=== PATIENT | female | born 1990 | race African-American/Black ===

== ENCOUNTER 2017-09-03 07:18 | Inpatient (IN) | payer MEDICAID ==
[~2017-09-03] VITALS: Ht 162.6 cm; Wt 65.3 kg
[2017-09-03] MEDS ORDERED: LACTATED RINGERS 1,000 ML IV SCH (07:29)
[2017-09-03] MEDS ORDERED: CARBOPROST TROMETHAMINE 250 MCG/ML AMPUL IM PRN (07:30)
[2017-09-03] MEDS ORDERED: LIDOCAINE HCL 1% 20ML VIAL (Pyxis) INJ INFIL SCH (07:30)
[2017-09-03] MEDS ORDERED: METHYLERGONOVINE MALEATE 0.2 MG/ML IM PRN (07:30)
[2017-09-03 08:25] LABS: CLARITY URINE CLEAR (CLEAR); COLOR URINE YELLOW (YELLOW); KETONES URINE 1+ (NEGATIVE); LEUKOCYTE ESTERASE URINE NEGATIVE (NEGATIVE); NITRITE URINE NEGATIVE (NEGATIVE); OCCULT BLOOD URINE NEGATIVE (NEGATIVE); PROTEIN URINE NEGATIVE (NEGATIVE); SPECIFIC GRAVITY URINE 1.011 (1.005-1.030)
[2017-09-03 08:27] LABS: BASOPHILS % 0.1 % (0.0-2.0); EOSINOPHILS % 0.1 % (0.0-5.0); HEMATOCRIT. 32.7 % (36.0-48.0); LYMPHOCYTES % 16.2 % (20.0-50.0); MEAN CORPUSCULAR HEMOGLOBIN 31.5 pg (28.0-32.0); MEAN CORPUSCULAR VOLUME 93.5 fL (81.0-99.0); MEAN PLATELET VOLUME 9.5 fl (7.4-10.4); MONOCYTES % 5.2 % (2.0-8.0); NEUTROPHILS % 78.4 % (40.0-76.0); PLATELET 234 x1000/uL (130-400); RED CELL DISTRIBUTION WIDTH 14.6 % (11.6-14.6)
[2017-09-03 08:29] LABS: CHLORIDE 102 mEq/L (98-107)
[2017-09-03 08:38] LABS: PARTIAL THROMBOPLASTIN TIME 26.4 sec (23.4-31.0)
[2017-09-03 08:57] LABS: PHENCYCLIDINE URINE SCREEN NEGATIVE (NEGATIVE)
[2017-09-03 08:58] LABS: *BARBITURATES SCREEN URINE NEGATIVE (NEGATIVE); *BENZODIAZEPINES SCREEN URINE NEGATIVE (NEGATIVE); *COCAINE SCREEN URINE NEGATIVE (NEGATIVE); METHADONE URINE SCREEN NEGATIVE (NEGATIVE); OPIATES URINE SCREEN NEGATIVE (NEGATIVE)
[2017-09-03 09:15] LABS: *AMPHETAMINES SCREEN URINE PRESUMTIVE POSITIVE (NEGATIVE); CANNABINOID URINE SCREEN PRESUMTIVE POSITIVE (NEGATIVE)
[2017-09-03] MEDS: DEXT 5%/LR + PITOCIN 20UNITS/L 1,000 ML IV SCH ×2 (09:24→09:54)
[2017-09-03] MEDS ORDERED: DEXT 5%/LR + PITOCIN 20UNITS/L 1,000 ML IV SCH (09:51)
[2017-09-03] MEDS ORDERED: IBUPROFEN 400MG TABLET PO PRN (10:00)
[2017-09-03] MEDS ORDERED: ACETAMINOPHEN WITH CODEINE 300/30MG TABLET PO PRN ×2 (10:00)
[2017-09-03] MEDS ORDERED: HEMORRHOIDAL SUPP PR PRN (10:00)
[2017-09-03] MEDS ORDERED: GLYCERIN/WITCH HAZEL LEAF MEDICATED PAD TOP PRN (10:00)
[2017-09-03] MEDS ORDERED: BISACODYL 10MG SUPP PR PRN (10:00)
[2017-09-03] MEDS: LABETALOL HCL 200MG TABLET PO SCH ×2 (10:19→21:38)
[2017-09-03 11:30] VITALS: BP 130/73
[2017-09-03 12:00] VITALS: BP 135/75
[2017-09-03 12:09] LABS: HEPATITIS B SURFACE ANTIGEN NEGATIVE; RUBELLA IGG 10.6 IU/mL (4.99-10)
[2017-09-03 16:48] VITALS: BP 124/73
[2017-09-03] MEDS: SIMETHICONE 80MG TABLET CHEW PO SCH ×2 (17:52→21:38)
[2017-09-03] MEDS: MAGNESIUM/ALUMINUM HYDROXIDE/SIMETHICONE 30ML UDC PO SCH ×2 (17:52→21:39)
[2017-09-03] MEDS ORDERED: DOCUSATE SODIUM 100MG CAPSULE PO SCH (21:00)
[2017-09-03 22:00] VITALS: BP_SYST 103; BP_SYST 121; BP_DIAS 63; BP_DIAS 68
[2017-09-04 04:00] VITALS: BP 109/55
[2017-09-04 08:00] VITALS: BP 123/48
[2017-09-04] MEDS: LABETALOL HCL 200MG TABLET PO SCH ×2 (08:17→21:22)
[2017-09-04 08:50] LABS: BASOPHILS % 0.2 % (0.0-2.0); EOSINOPHILS % 0.2 % (0.0-5.0); HEMATOCRIT. 30.3 % (36.0-48.0); LYMPHOCYTES % 26.1 % (20.0-50.0); MEAN CORPUSCULAR HEMOGLOBIN 31.5 pg (28.0-32.0); MEAN CORPUSCULAR VOLUME 95.2 fL (81.0-99.0); MEAN PLATELET VOLUME 9.1 fl (7.4-10.4); MONOCYTES % 6.5 % (2.0-8.0); PLATELET 213 x1000/uL (130-400); RED BLOOD CELL COUNT 3.19 mill/uL (4.2-5.4); RED CELL DISTRIBUTION WIDTH 14.5 % (11.6-14.6)
[2017-09-04] MEDS: SIMETHICONE 80MG TABLET CHEW PO SCH ×4 (09:43→21:12)
[2017-09-04] MEDS: PRENATAL VIT/FE FUMARATE/FA TABLET PO SCH (09:43)
[2017-09-04] MEDS: MAGNESIUM/ALUMINUM HYDROXIDE/SIMETHICONE 30ML UDC PO SCH ×4 (09:43→21:12)
[2017-09-04] MEDS: FERROUS SULFATE 325MG TABLET PO SCH ×2 (13:29→18:00)
[2017-09-04 15:56] VITALS: BP 113/67
[2017-09-04 20:00] VITALS: BP 124/83
[2017-09-04 21:22] VITALS: BP 132/67
[2017-09-05 06:30] VITALS: BP 119/69
[2017-09-05] MEDS: LABETALOL HCL 200MG TABLET PO SCH (09:00)
[2017-09-05 11:24] VITALS: BP 100/58
[2017-09-05] MEDS: MAGNESIUM/ALUMINUM HYDROXIDE/SIMETHICONE 30ML UDC PO SCH ×2 (13:17→16:14)
[2017-09-05] MEDS: FERROUS SULFATE 325MG TABLET PO SCH ×2 (13:17→16:13)
[2017-09-05] MEDS: SIMETHICONE 80MG TABLET CHEW PO SCH ×2 (13:18→16:13)
[2017-09-05] MEDS: PRENATAL VIT/FE FUMARATE/FA TABLET PO SCH (13:18)
[2017-09-05 15:30] VITALS: BP 120/64
== END 2017-09-05 19:15 | disposition home or self-care (01) | DRG 560 ==
LOC: L&D 07:18 → OBSVTOIN 07:18 → 7EST PP/OB 11:06
PROVIDERS: ADMIT Obstetrics & Gynecology; ATTEND Obstetrics & Gynecology
PROC: 10E0XZZ Delivery of Products of Conception, External Approach (ICD-10-PCS; principal; 2017-09-03 07:43)
DX: O48.0 Post-term pregnancy (principal); O77.0 Labor and delivery complicated by meconium in amniotic fluid; Z37.0 Single live birth; Z3A.40 40 weeks gestation of pregnancy
CPT/HCPCS: 36415; 80053; 80305; 80307; 80349; 81003; 82962; 84550; 85025; 85384; 85610; 85730; 86592; 86703; 86762; 86850; 86900; 87340; J2590; J7120